=== PATIENT | female | born 1935 | race Caucasian/White ===

== ENCOUNTER 2020-03-16 07:48 | Emergency (ER) | payer MEDICARE ==
[2020-03-16 08:00] VITALS: RESP 18; TEMP 97.6
[2020-03-16] MEDS ORDERED: METOPROLOL SUCCINATE (ER) 25 MG TAB.ER.24H PO STA (08:02)
[2020-03-16] MEDS ORDERED: amLODIPine 5 MG TAB PO STA (08:02)
[2020-03-16] MEDS ORDERED: KETOROLAC 60 MG/2 ML VIAL IM STA (08:02)
--- NOTE | 2020-03-16 08:07 | ED ---
General Adult HPI - General Chief complaint: Back Pain/Injury Stated complaint: Prrolapsed Bladder Source: patient, EMS, RN notes reviewed, old records reviewed Mode of arrival: EMS Limitations: no limitations - History of Present Illness Initial comments: This is an 84-year-old female who presents emergency department from a senior living. According to the patient she's had back pain lately she believes is been for about 3 days. Patient states when she takes Tylenol feels much better. Patient states she heard 3 days ago when she was lifting something at the facility. Patient was sent in by staff because she was asking for some assistance off the toilet and they noticed that something is protruding from vagina and they assumed it was her bladder. Patient denies any fall or injury other than the lifting. Patient denies any abdominal pain patient denies any nausea vomiting diarrhea. Patient denies any dysuria hematuria urinary frequency. - Related Data Allergies Allergy/AdvReac Type Severity Reaction Status Date / Time Penicillins Allergy Rash/Hives Verified 03/16/20 08:01 Review of Systems ROS Statement: Those systems with pertinent positive or pertinent negative responses have been documented in the HPI. ROS Other: All systems not noted in ROS Statement are negative. Past Medical History Past Medical History: Hypertension History of Any Multi-Drug Resistant Organisms: None Reported Past Surgical History: No Surgical Hx Reported Past Psychological History: No Psychological Hx Reported Smoking Status: Never smoker Past Alcohol Use History: None Reported Past Drug Use History: None Reported General Exam - General Exam Comments Initial Comments: GENERAL: Patient is well-developed and well-nourished. Patient is nontoxic and well- hydrated and is in no acute distress. ENT: Neck is soft and supple. No significant lymphadenopathy is noted. Oropharynx is clear. Moist mucous membranes. Neck has full range of motion without eliciting any pain. EYES: The sclera were anicteric and conjunctiva were pink and moist. Extraocular movements were intact and pupils were equal round and reactive to light. Eyelids were unremarkable. PULMONARY: Unlabored respirations. Good breath sounds bilaterally. No audible rales rhonchi or wheezing was noted. CARDIOVASCULAR: There is a regular rate and rhythm without any murmurs gallops or rubs. ABDOMEN: Soft and nontender with normal bowel sounds. SKIN: Skin is clear with no lesions or rashes and otherwise unremarkable. NEUROLOGIC: Patient is alert and oriented x3. Cranial nerves II through XII are grossly intact. Motor and sensory are also intact. Normal speech, volume and content. Symmetrical smile. MUSCULOSKELETAL: Normal extremities with adequate strength and full range of motion. No lower extremity swelling or edema. No calf tenderness. Straight leg test was negative bilaterally. Patient did not have any palpable area of tenderness. LYMPHATICS: No significant lymphadenopathy is noted PSYCHIATRIC: Normal psychiatric evaluation. Limitations: no limitations Course Vital Signs 03/16/20 03/16/20 07:54 08:25 Temperature 97.6 F Pulse Rate 81 Respiratory 18 Rate Blood Pressure 181/101 152/95 O2 Sat by Pulse 98 98 Oximetry Medical Decision Making - Medical Decision Making Lumbosacral spine shows no acute abnormality. Patient has a prolapsed uterus which is easily reducible. I spoke with Dr. Strange she will see the patient in her office. I will begin to talk to the patient and she was in no distress she stated her back was much better after the Toradol and she will follow-up with Dr. Cox Disposition Clinical Impression: Lumbar strain, Prolapsed uterus Disposition: HOME SELF-CARE Instructions (If sedation given, give patient instructions): Acute Low Back Pain (ED), Uterine Prolapse (ED) Is patient prescribed a controlled substance at d/c from ED?: No Referrals: Julee Cox DO [Doctor of Osteopathic Medicine] - 1-2 days Time of Disposition: 09:32
--- NOTE | 2020-03-16 08:26 | XR ---
EXAMINATION TYPE: XR lumbosacral spine min 4V DATE OF EXAM: 03/16/2020 CLINICAL HISTORY: pain COMPARISON: NONE TECHNIQUE: Frontal, lateral, and oblique images of the lumbar spine are obtained. FINDINGS: There are 5 lumbar type vertebral bodies identified. Severe scoliosis noted convex to the left. Severe multilevel degenerative disc disease with endplate sclerosis and spondylosis. Facet join t arthropathy. No definite compression fractures seen. The overlying soft tissue appears unremarkable . IMPRESSION: No acute fracture or dislocation is seen in the lumbar spine.ICD 10 NO FRACTURE, INITIAL EVALUATION
[2020-03-16 09:56] VITALS: BP 138/86; PULSE 84
== END 2020-03-16 09:35 | disposition home or self-care (01) ==
LOC: EC 07:48
DX: S39.012A Strain of muscle, fascia and tendon of lower back, initial encounter (principal); N81.4 Uterovaginal prolapse, unspecified; Z88.0 Allergy status to penicillin; X58.XXXA Exposure to other specified factors, initial encounter
CPT/HCPCS: 72110; 96372; 99284; J1885